=== PATIENT | female | born 1985 | race Asian ===

== ENCOUNTER 2019-11-26 11:00 | Emergency (ER) | payer MEDICAID ==
[~2019-11-26] VITALS: Ht 154.9 cm; Wt 67.1 kg
[2019-11-26 11:10] VITALS: BP_SYST 125
--- NOTE | 2019-11-26 11:14 | NUR ---
Patient triaged and placed in waiting room. VSS and patient appears in no acute distress at this time. Awaiting available bed, and MD notified of need for MSE.
--- NOTE | 2019-11-26 11:44 | NUR ---
Patient to ER bed 7 to gown for evaluation. Side rails up. Report given to RHETT Nascimento.
--- NOTE | 2019-11-26 11:45 | NUR ---
Patient arrived in the ED c/o neck pain and spasm for the last 2 days. Denied any chest pain or shortness of breath. Denied any fevers, chills, nausea or vomiting. Patient is alert and oriented x4, respirations even and unlabored, speaking in full sentences, and ambulating with a steady gait. VSS, pain level 7/10 - Taking Tylenol for it. Informed of the approximate wait time. Instructed to notify ED staff for any changes in condition or worsening of symptoms while waiting to be seen by an ED provider. Patient verbalized understanding.
--- NOTE | 2019-11-26 11:54 | NUR ---
Patient taken to X-ray as ordered by Dr. Lafleur, in stable condition.
--- NOTE | 2019-11-26 12:11 | NUR ---
Patient is back from X-ray, in stable condition.
--- NOTE | 2019-11-26 12:15 | NUR ---
ER Dr. Lafleur at bedside examining patient.
--- NOTE | 2019-11-26 12:27 | NUR ---
Administered Ativan PO and Toradol IM as ordered by Dr. Lafleur. Patient tolerated the medications well. See eMAR for details.
[2019-11-26] MEDS ORDERED: KETOROLAC TROMETHAMINE 60 MG/2 ML VIAL IM ONE (12:30)
[2019-11-26] MEDS ORDERED: LORazepam 1 MG TABLET PO ONE (12:30)
--- NOTE | 2019-11-26 12:37 | NUR ---
ER discussed with the patient the results and treatment provided. Patient given written and verbal discharge instructions and verbalized understanding. Opportunity for questions provided and answered. Patient in stable condition, last set of vital signs within normal limits, pain scale 0/10, speaking in full sentences and ambulated with a steady gait upon discharge. ID arm band removed. Rx of Motrin, Tramadol and Robaxin given. Patient educated on pain management and to follow up with PMD. Medication side effect fact sheet provided.
[2019-11-26 12:38] VITALS: BP_SYST 125
== END 2019-11-26 12:38 | disposition home or self-care (01) ==
LOC: SED 11:00
DX: S16.1XXA Strain of muscle, fascia and tendon at neck level, initial encounter (principal); X50.9XXA Other and unspecified overexertion or strenuous movements or postures, initial encounter; Y93.89 Activity, other specified; Y92.89 Other specified places as the place of occurrence of the external cause; Y99.8 Other external cause status
CPT/HCPCS: 72040; 96372; 99283; J1885